=== PATIENT | female | born 1990 | race American Indian/Alaskan Native ===

== ENCOUNTER 2016-06-29 15:14 | Outpatient (CLI) | payer MEDICAID ==
[2016-06-29 15:35] VITALS: BP 112/63
== END 2016-06-29 16:35 | disposition home or self-care (01) ==
LOC: TRG 15:14
PROVIDERS: ATTEND Obstetrics & Gynecology
DX: O48.0 Post-term pregnancy (principal); Z3A.40 40 weeks gestation of pregnancy
CPT/HCPCS: 59025

== ENCOUNTER 2016-06-30 12:20 | Outpatient (CLI) | payer MEDICAID ==
[2016-06-30 14:35] VITALS: BP 132/90
[2016-06-30 14:40] LABS: Hematocrit 36.9 % (30.3-42.9); Hemoglobin 12.5 gm/dl (10.1-14.3); Mean Corpuscular HGB Conc 34 % (30-34); Mean Corpuscular Hemoglobin 30 pg (28-32); Mean Corpuscular Volume 89 fl (79-97); Platelet Count 224 K/mm3 (140-440); Red Blood Count 4.15 M/mm3 (3.65-5.03); Red Cell Distribution Width 13.2 % (13.2-15.2); White Blood Count 6.6 K/mm3 (4.5-11.0)
[2016-06-30 15:00] LABS: Bilirubin,Urine NEG (Negative); Blood,Urine SM (Negative); Ketones,Urine NEG (Negative); Leukocyte Esterase,Urine LG (Negative); Nitrite,Urine NEG (Negative); Protein,Urine <15 mg/dL mg/dL (Negative); Urobilinogen,Urine < 2.0 mg/dL (<2.0)
[2016-06-30 15:02] LABS: Alanine Aminotransferase 8 units/L (7-56)
[2016-06-30 15:06] LABS: Lactate Dehydrogenase 169 units/L (91-180); Uric Acid 4.5 mg/dL (3.5-7.6)
[2016-06-30 15:26] LABS: Bacteria,Urine 1+ /HPF (Negative)
== END 2016-06-30 17:00 | disposition home or self-care (01) ==
LOC: TRG 12:20
PROVIDERS: ATTEND Obstetrics & Gynecology
DX: O48.0 Post-term pregnancy (principal); Z3A.40 40 weeks gestation of pregnancy
CPT/HCPCS: 36415; 59025; 81001; 82565; 83615; 84450; 84460; 84550; 85027